=== PATIENT | female | born 2000 | race Caucasian/White ===

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

== ENCOUNTER 2019-01-09 13:41 | Emergency (ER) | payer BC ==
[2019-01-09 13:55] VITALS: BP 107/65
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
[2019-01-09] MEDS ORDERED: diazePAM 5 MG TABLET PO ONE (14:24)
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
== END 2019-01-09 15:23 | disposition home or self-care (01) ==
LOC: ED 13:41
DX: S13.4XXA Sprain of ligaments of cervical spine, initial encounter (principal); V87.7XXA Person injured in collision between other specified motor vehicles (traffic), initial encounter; Y99.8 Other external cause status
CPT/HCPCS: 72040; 81025; 99283; 99284